=== PATIENT | male | born 1960 | race Caucasian/White ===

== ENCOUNTER → 2016-11-10 18:23 | Outpatient (CLI) | payer BC ==
[2015-05-23 11:12] VITALS: BMI 38.4
[~2016-11-10 18:23] MED LIST: ADVAIR 250/501 DISK; ADVAIR 250/501 DISK INH; AXIRON30 MG/1.5; CHLORTHALIDONE25 MG PO; CYCLOBENZAPRINE10 MG PO; DILAUDID4 MG PO; DILAUDID8 MG PO; FELDENE20 MG PO; FLUTICASONE PRO16 GM NS; MAXAIR AUTOHALE14 GM INH; NORCO 10/325 TA1 TA1 PO; NORVASC5 MG PO; PROTONIX40 MG PO; SINGULAIR10 MG; ZESTRIL40 MG PO
== END | disposition home or self-care (01) ==
LOC: D.LABREF 18:23
DX: M25.511 Pain in right shoulder (principal)

== ENCOUNTER 2017-06-28 22:33 | Emergency (ER) | payer BC ==
[2015-05-23 11:12] VITALS: BMI 38.4
[2017-06-28 23:48] LABS: APPEARANCE CLEAR (CLEAR); BILIRUBIN NEGATIVE (NEGATIVE); COLOR YELLOW (YELLOW); GLUCOSE NEGATIVE (NEGATIVE); KETONE NEGATIVE (NEGATIVE); LEUKOCYTE ESTERASE TRACE (NEGATIVE); NITRITE NEGATIVE (NEGATIVE); PROTEIN NEGATIVE (NEGATIVE); SPECIFIC GRAVITY 1.015 (1.005-1.020)
[2017-06-28 23:50] LABS: BACTERIA NONE SEEN /hpf (NONE SEEN); EPITHELIAL CELLS 0-5 /hpf (0-5); RED CELLS - URINE NONE SEEN /hpf (0-5); WHITE CELLS - URINE 0-5 /hpf (0-5)
[2017-06-28 23:53] LABS: HEMATOCRIT 50.6 % (42.0-54.0); MCH 29.4 pg (26.0-34.0); MCHC 33.6 g/dL (31.0-37.0); MCV 87.5 fL (80.0-100.0); MEAN PLATELET VOLUME 9.2 fL (7.4-10.4); NEUTROPHILS 73.2 % (40-80); PLATELET COUNT 213 10x3/uL (130-400); RBC 5.78 10x6/uL (4.20-6.10); RDW 12.9 % (11.5-14.5); WBC 11.3 10x3/uL (4.8-10.8)
[2017-06-29 00:05] LABS: ALBUMIN 3.5 g/dL (3.4-5.0); ALKALINE PHOSPHATASE 73 U/L (46-116); ALT (SGPT) 33 U/L (10-68); CALC OSMOLALITY 279 mosm/kg (275-300); CARBON DIOXIDE 30.5 mmol/L (21.0-32.0); CHLORIDE - SERUM 100 mmol/L (98-107); CREATININE - SERUM 0.9 mg/dL (0.6-1.3); GLUCOSE 107 mg/dL (74-106); POTASSIUM - SERUM 3.6 mmol/L (3.5-5.1); PROTEIN - SERUM 6.9 g/dL (6.4-8.2); SODIUM 139 mmol/L (136-145); UREA NITROGEN 19 mg/dL (7-18); eGFR NON AFRICAN AMERICAN > 90 mL/min (90-120)
[2017-06-29 00:30] LABS: CREATINE KINASE 320 UL (21-232); TROPONIN-I < 0.017 ng/mL (0.000-0.060)
[2017-06-29 00:33] LABS: CKMB 6.1 U/L (0.0-3.6)
[2017-06-29 03:00] LABS: CREATINE KINASE 272 UL (21-232)
[2017-06-29 03:01] LABS: CKMB 5.3 U/L (0.0-3.6); TROPONIN-I < 0.017 ng/mL (0.000-0.060)
== END 2017-06-29 03:37 | disposition home or self-care (01) ==
LOC: D.ER 22:33
PROVIDERS: Nurse Practitioner Family
DX: I45.2 Bifascicular block (principal); R00.1 Bradycardia, unspecified; I10 Essential (primary) hypertension; J45.909 Unspecified asthma, uncomplicated; I45.10 Unspecified right bundle-branch block